=== PATIENT | female | born 1975 | race Caucasian/White ===

== ENCOUNTER 2018-09-12 16:10 | Emergency (ER) | payer MEDICAID ==
[~2018-09-12] VITALS: Wt 58.0 kg
[~2018-09-12 16:10] MED LIST: MECL12.574 PO
[2018-09-12] MEDS ORDERED: MECLIZINE 12.5 MG TAB PO ONE (18:30)
[2018-09-12 19:25] VITALS: BP 124/69; PULSE 63; RESP 18
--- NOTE | 2018-09-12 21:40 | ERD ---
ER Documentation Chief Complaint Chief Complaint vertigo x 3 weeks HPI This is a 43-year-old female presenting to the emergency department complaining of one episode of feeling the room spinning today. She has history of similar symptoms intermittent over the past 3 weeks. Episodes last approximately 10 seconds when moving the head quickly from side to side. Episodes spontaneously resolved without intervention. She denies any fevers, chills, shortness of breath, chest pain, syncope, or other symptoms at this time. Symptoms are mild. ROS All systems reviewed and are negative except as per history of present illness. Medications Home Meds Active Scripts Meclizine Hcl* (Antivert*) 12.5 Mg Tab, 12.5 MG PO Q6H PRN for DIZZINESS, #20 TAB Prov:MILAN PATTERSON PA-C 09/12/18 Allergies Allergies: Coded Allergies: No Known Allergy (Verified Allergy, Mild, 12/03/08) PMhx/Soc Medical and Surgical Hx: pt denies Medical Hx History of Surgery: Yes ( x1) Anesthesia Reaction: No Hx Neurological Disorder: No Hx Respiratory Disorders: No Hx Cardiac Disorders: No Hx Psychiatric Problems: No Hx Miscellaneous Medical Probl: No Hx Alcohol Use: No Hx Substance Use: No Hx Tobacco Use: No Smoking Status: Never smoker FmHx Family History: No diabetes Physical Exam Vitals Vital Signs Date Temp Pulse Resp B/P (MAP) Pulse Ox O2 O2 Flow FiO2 Time Delivery Rate 09/12/18 98.4 63 18 124/69 99 19:25 (87) 09/12/18 98.4 79 18 115/64 99 16:17 (81) Physical Exam Const: No acute distress Head: Atraumatic Eyes: Normal Conjunctiva ENT: Normal External Ears, Nose and Mouth. Neck: Full range of motion. No meningismus. Resp: Clear to auscultation bilaterally Cardio: Regular rate and rhythm, no murmurs Abd: Soft, non tender, non distended. Normal bowel sounds Skin: No petechiae or rashes Back: No midline or flank tenderness Ext: No cyanosis, or edema Neur: Awake and alert Psych: Normal Mood and Affect Results 24 hrs Current Medications Medications Dose Sig/Bob Start Time Status Last (Trade) Ordered Route PRN Stop Time Admin Dose Reason Admin Meclizine 12.5 mg ONCE ONCE 09/12/18 DC 09/12/18 HCl PO 18:30 8/1/19 18:34 (Antivert) 18:31 Procedures/MDM 43-year-old female presents emergency department complaining of vertigo symptoms. She was administered meclizine. On reevaluation she was significantly improved. Patient's neurologic symptoms have been evaluated in the department and have stabilized. Patient is appropriate for outpatient management. No evidence of meningitis, intracranial bleed, seizure, stroke, or elevated intracranial pressure. Additionally, a HINTS exam was performed. The the patient had an abnormal Head Impulse test, with a quick saccade movement to catchup while maintaining a forward gaze. The patient also had a horizontal Nystagmus and became dizzy during this test, indicative of an acute vestibular syndrome. The overall clinical picture does not suggest signs of a posterior stroke. Head Ct Risks and Benefits: CT Scan of the head was discussed with all present and we agree at this time that a trial of watchful waiting is most appropriate. No evidence of life-threatening pathology at time of discharge. Pt/family in agreement with discharge plan/diagnosis. Pt/family advised to return immediately with any new or worsening symptoms. Follow-up with primary care physician within the next 1-2 days. Departure Diagnosis: Primary Impression: Vertigo Condition: Fair Patient Instructions: Vertigo, Unspecified Referrals: [facility] se mcintyre hecho un examen mdico de control que le indica que no est en brent condicin que requiera tratamiento urgente en el Departamento de Emergencia. Un estudio ms profundo y el tratamiento de singh condicin pueden esperar sin ningn riesgo hasta que usted sea atendida/o en el consultorio de singh mdico o brent clnica. Es responsabilidad suya arreglar brent estephanie para el seguimiento del darren. MANEJO DE CONDICIONES NO URGENTES EN EL FUTURO 1) Si usted tiene un mdico de atencin primaria: Usted debera llamar a singh mdico de atencin primaria antes de venir al departamento de emergencia. Despus de las horas de consultorio, singh doctor o singh asociado/a est disponible por telfono. El mdico o enfermero de bandar en el servicio telefnico puede asesorarle por es medio para atender el problema, o darren contrario se puede programar brent estephanie. 2) Si usted no tiene un mdico de atencin primaria: Llame al mdico o clnica de referencia que aparece abajo annel las horas de consultorio para hacer brent estephanie para que le vean. CLINICAS: [facility] [phone] [facility] [phone] [facility] [phone] [place] [phone] [facility] [phone] [facility]. [phone] [address] Additional Instructions: Llame al doctor MAANA y leslie brent ESTEPHANIE PARA DENTRO DE 1-2 OCONNELL.Dgale a la secretaria que nosotros le instruimos hacer esta estephanie.Avise o llame si singh condicin se empeora antes de la estephanie. Regresa aqui si peor o no mejor. MILAN PATTERSON PA-C Sep 12, 2018 21:40
== END 2018-09-12 19:25 | disposition home or self-care (01) ==
LOC: FTE 16:10
DX: R42 Dizziness and giddiness (principal)
CPT/HCPCS: Z7502; Z7610; 99282